=== PATIENT | female | born 1955 | race Caucasian/White ===

== ENCOUNTER 2021-01-16 14:28 | Emergency (ER) | payer MEDICARE, OTHER ==
[~2021-01-16] VITALS: Ht 175.3 cm; Wt 86.2 kg
[~2021-01-16 14:28] MED LIST: FENOFIBRATE145 MG PO; LEXAPRO10 MG PO; METOPROLOL SUCC25 MG PO; PREMARIN0.625 MG PO; ZETIA10 MG PO
[2021-01-16] MEDS ORDERED: CASIRIVIMAB/IMDEVIMAB 10 ML in SODIUM CHLORIDE 0.9% 100 ML IV ONE (15:00)
== END 2021-01-16 17:40 | disposition home or self-care (01) ==
LOC: ER 15:20
DX: U07.1 COVID-19 (principal); I10 Essential (primary) hypertension; E78.5 Hyperlipidemia, unspecified; Z86.73 Personal history of transient ischemic attack (TIA), and cerebral infarction without residual deficits
CPT/HCPCS: 99282; J7050